=== PATIENT | female | born 1975 | race Caucasian/White ===

== ENCOUNTER → 2019-01-10 | Outpatient (CLI) | payer SELFPAY ==
[~2019-01-10] MED LIST: LEVO150T78 PO; LEVO175T42 PO; LIOT5TAB18 PO; LOOVRAL PO
== END ==
LOC: LAB 11:42
PROVIDERS: ATTEND Internal Medicine Endocrinology, Diabetes & Metabolism
DX: E03.9 Hypothyroidism, unspecified (principal)
CPT/HCPCS: 36415; 84439; 84443